=== PATIENT | male | born 1980 | race Caucasian/White ===

== ENCOUNTER 2022-03-07 22:19 | Emergency (ER) | payer OTHER, SELFPAY | END 2022-03-07 23:54 | disposition home or self-care (01) | LOC: BURERS 22:19 | DX: S93.501A Unspecified sprain of right great toe, initial encounter (principal); F17.210 Nicotine dependence, cigarettes, uncomplicated; W17.2XXA Fall into hole, initial encounter; Y93.89 Activity, other specified ==